=== PATIENT | female | born 1970 | race Caucasian/White ===

== ENCOUNTER 2018-03-27 10:04 | Day surgery (SDC) | payer OTHER ==
[2018-03-27 10:35] VITALS: BMI 29.2
[2018-03-27 10:57] VITALS: O2SAT 100
[2018-03-27] MEDS ORDERED: Lactated Ringer's 1,000 ML IV ONE (12:25)
[2018-03-27] MEDS ORDERED: Propofol 10 mg/ml Inj (20 ML) ONE (12:32)
[2018-03-27 13:41] VITALS: TEMP 97.8
[2018-03-27 13:46] VITALS: BP 117/68; PULSE 66; RESP 14
== END 2018-03-27 14:00 | disposition home or self-care (01) ==
LOC: C.ENDO 10:04
PROVIDERS: ATTEND Internal Medicine
DX: R13.10 Dysphagia, unspecified (principal); K29.70 Gastritis, unspecified, without bleeding
CPT/HCPCS: 43239; 84703; 88305; J2001; J2704; J7120